=== PATIENT | female | born 1980 | race Caucasian/White ===

== ENCOUNTER 2016-11-02 12:21 | Emergency (ER) | payer OTHER, BC ==
[~2016-11-02] VITALS: Ht 170.1 cm; Wt 62.6 kg
[~2016-11-02 12:21] MED LIST: TRAMADOL HCL50 MG PO
[2016-11-02] MEDS ORDERED: Motrin,Rufen800 MG PO (14:46)
[2016-11-02] MEDS ORDERED: Orphenadrine C100 MG PO (14:46)
== END 2016-11-02 14:51 | disposition home or self-care (01) ==
LOC: ED 12:21
DX: S13.9XXA Sprain of joints and ligaments of unspecified parts of neck, initial encounter (principal); M25.512 Pain in left shoulder; V87.7XXA Person injured in collision between other specified motor vehicles (traffic), initial encounter; Y93.89 Activity, other specified; Y92.89 Other specified places as the place of occurrence of the external cause; Y99.8 Other external cause status

== ENCOUNTER → 2016-11-30 | Outpatient (CLI) | payer BC ==
[~2016-11-30] MED LIST changes: +Motrin,Rufen800 MG PO; +Orphenadrine C100 MG PO
[2016-11-30 12:27] LABS: HEMATOCRIT 39.4 % (37.0-47.0); HEMOGLOBIN 13.7 g/dl (12.0-16.0); MEAN CELL VOLUME 86.6 fl (81.0-99.0); MEAN CORPUSCULAR HGB 30.1 pg (27.0-31.0); MEAN CORPUSCULAR HGB CONC 34.8 g/dl (33.0-37.0); MEAN PLATELET VOLUME 12.5 fl (9.6-12.3); RED BLOOD COUNT 4.55 10*6/uL (4.10-5.10); RED CELL DISTRI WIDTH 12.3 % (0-14.5); WHITE BLOOD COUNT 6.6 10*3/uL (4.8-10.8)
[2016-11-30 12:51] LABS: ALBUMIN 3.7 gm/dl (3.1-4.5); ALKALINE PHOSPHATASE 53 U/L (45-117); BILIRUBIN, TOTAL 0.8 mg/dl (0.2-1.0); BUN 11 mg/dl (7-24); CARBON DIOXIDE 26 mmol/L (21-32); CHLORIDE 105 mmol/L (98-107); CHOLESTEROL 120 mg/dL (<200); EST GLOM FILT AFRICAN AMERICAN > 60 ml/min; GLUCOSE 89 mg/dL (65-99); HDL CHOLESTEROL 69 mg/dl (40-60); LDL CHOLESTEROL 39 mg/dL (9-159); POTASSIUM 4.1 mmol/L (3.5-5.1); SGOT/AST 19 IU/L (3-35); SGPT/ALT 23 U/L (12-78); SODIUM 137 mmol/L (136-145); TOTAL PROTEIN 7.3 gm/dL (6.4-8.2); TRIGLYCERIDES 58 mg/dl (<150); VLDL CHOLESTEROL 12 mg/dL (6-40)
== END | disposition home or self-care (01) ==
LOC: LAB 11:56
PROVIDERS: Family Medicine
DX: Z13.220 Encounter for screening for lipoid disorders (principal); M54.2 Cervicalgia; E55.9 Vitamin D deficiency, unspecified; M54.42 Lumbago with sciatica, left side; M79.1 Myalgia

== ENCOUNTER → 2017-02-25 | Outpatient (CLI) | payer OTHER | END | disposition home or self-care (01) | LOC: MRI 09:00 | DX: M54.16 Radiculopathy, lumbar region (principal); M47.896 Other spondylosis, lumbar region; H74.8X3 Other specified disorders of middle ear and mastoid, bilateral ==

== ENCOUNTER 2017-06-02 10:20 | Emergency (ER) | payer BC ==
[~2017-06-02] VITALS: Ht 170.1 cm; Wt 65.8 kg
[2017-06-02] MEDS ORDERED: FLONASE ALLERG9.9 ML NAS (10:52)
[2017-06-02] MEDS ORDERED: ROBITUSSIN DM 105 ML PO (10:52)
[2017-06-02] MEDS ORDERED: PREDNISONE10 MG PO (10:52)
[2017-06-02] MEDS ORDERED: CLARITIN10 MG PO (10:52)
== END 2017-06-02 11:19 | disposition home or self-care (01) ==
LOC: ED 10:20
DX: J20.9 Acute bronchitis, unspecified (principal); R03.0 Elevated blood-pressure reading, without diagnosis of hypertension

== ENCOUNTER 2017-11-01 16:02 | Emergency (ER) | payer OTHER, BC ==
[~2017-11-01] VITALS: Ht 170.1 cm; Wt 63.5 kg
[~2017-11-01 16:02] MED LIST changes: +CLARITIN10 MG PO; +FLONASE ALLERG9.9 ML NAS; +PREDNISONE10 MG PO; +ROBITUSSIN DM 105 ML PO
[2017-11-01] MEDS ORDERED: Motrin,Rufen800 MG PO (17:49)
== END 2017-11-01 17:19 | disposition home or self-care (01) ==
LOC: ED 16:02
DX: S83.8X2A Sprain of other specified parts of left knee, initial encounter (principal); Z79.899 Other long term (current) drug therapy; W22.8XXA Striking against or struck by other objects, initial encounter; Y93.89 Activity, other specified; Y92.89 Other specified places as the place of occurrence of the external cause; Y99.8 Other external cause status

== ENCOUNTER → 2018-02-06 | Outpatient (CLI) | payer BC | END | disposition home or self-care (01) | LOC: CANPRECLI → ORTHO 00:21 | DX: M25.562 Pain in left knee (principal); Z91.81 History of falling ==

== ENCOUNTER → 2019-12-15 | Outpatient (CLI) | payer OTHER | END | disposition home or self-care (01) | LOC: MAMMO 13:30 | DX: N60.19 Diffuse cystic mastopathy of unspecified breast (principal) ==

== ENCOUNTER → 2020-06-18 | Outpatient (CLI) | payer BC ==
[2020-06-18 14:33] LABS: HEMATOCRIT 38.9 % (37.0-47.0); MEAN CELL VOLUME 88.2 fl (81.0-99.0); MEAN CORPUSCULAR HGB 29.7 pg (27.0-31.0); MEAN CORPUSCULAR HGB CONC 33.7 g/dl (33.0-37.0); MEAN PLATELET VOLUME 12.3 fl (9.6-12.3); RED BLOOD COUNT 4.41 10*6/uL (4.10-5.10); RED CELL DISTRI WIDTH 12.7 % (0-14.5); WHITE BLOOD COUNT 5.3 10*3/uL (4.8-10.8)
[2020-06-18 14:42] LABS: ALBUMIN 3.7 gm/dl (3.1-4.5); ALKALINE PHOSPHATASE 77 U/L (45-117); BUN 11 mg/dl (7-24); CHLORIDE 108 mmol/L (98-107); CHOLESTEROL 146 mg/dL (<200); HDL CHOLESTEROL 68 mg/dl (40-60); LDL CHOLESTEROL 47 mg/dL (9-159); POTASSIUM 4.1 mmol/L (3.5-5.1); SGOT/AST 20 IU/L (3-35); SGPT/ALT 42 U/L (12-78); SODIUM 139 mmol/L (136-145); TOTAL PROTEIN 7.1 gm/dL (6.4-8.2); TRIGLYCERIDES 154 mg/dl (<150); VLDL CHOLESTEROL 31 mg/dL (6-40)
[2020-06-19 10:06] LABS: FOLLICLE STIMULATING HORMONE 34.6 mIU/mL (.)
== END | disposition home or self-care (01) ==
LOC: LAB 13:56
PROVIDERS: ATTEND Nurse Practitioner Family
DX: K59.00 Constipation, unspecified (principal); R10.9 Unspecified abdominal pain; G47.00 Insomnia, unspecified; Z13.220 Encounter for screening for lipoid disorders

== ENCOUNTER → 2021-10-24 | Outpatient (CLI) | payer BC ==
[2021-10-24 14:25] LABS: HEMATOCRIT 39.4 % (37.0-47.0); MEAN CELL VOLUME 87.2 fl (81.0-99.0); MEAN CORPUSCULAR HGB 30.1 pg (27.0-31.0); MEAN CORPUSCULAR HGB CONC 34.5 g/dl (33.0-37.0); MEAN PLATELET VOLUME 11.5 fl (9.6-12.3); RED BLOOD COUNT 4.52 10*6/uL (4.10-5.10); RED CELL DISTRI WIDTH 12.8 % (0-14.5); WHITE BLOOD COUNT 6.1 10*3/uL (4.8-10.8)
[2021-10-24 14:46] LABS: ALKALINE PHOSPHATASE 69 U/L (45-117); BUN 12 mg/dl (7-24); CHLORIDE 105 mmol/L (98-107); CHOLESTEROL 144 mg/dL (<200); CREATININE 0.86 mg/dL (0.55-1.02); POTASSIUM 3.7 mmol/L (3.5-5.1); SGOT/AST 26 IU/L (3-35); SGPT/ALT 41 U/L (12-78); SODIUM 138 mmol/L (136-145); TOTAL PROTEIN 7.1 gm/dL (6.4-8.2); TRIGLYCERIDES 82 mg/dl (<150)
[2021-10-24 14:52] LABS: FREE T4 0.92 ng/dl (0.76-1.46); LDL CHOLESTEROL 55 mg/dL (9-159)
[2021-10-24 15:41] LABS: VITAMIN D, 25-HYDROXY 34.3 ng/mL (30-100)
== END | disposition home or self-care (01) ==
LOC: LAB 14:01
PROVIDERS: ATTEND Family Medicine
DX: Z00.00 Encounter for general adult medical examination without abnormal findings (principal); E55.9 Vitamin D deficiency, unspecified; R53.83 Other fatigue